=== PATIENT | female | born 1970 | race Caucasian/White ===

== ENCOUNTER → 2016-12-20 | Outpatient (CLI) | payer OTHER ==
--- NOTE | 2016-12-20 13:52 | KCIC ---
Examination: Ultrasound pelvis HISTORY: History of postmenopausal bleeding COMPARISON: None available TECHNIQUE: Transabdominal, transvaginal ultrasonogram of the pelvis. FINDINGS: The uterus measures 9.6 x 4.7 x 6.1 cm. The endometrium in the superior portion appears heterogenous. The evaluation of the endometrium in this region is limited due to shadowing artifact. Grossly the endometrium may measure about 2.3 cm. The right ovary measures 2.8 x 1.6 x 2.3 cm. The left ovary measures 2.2 x 1.4 x 1.6 cm. Blood flow identified in the right and left ovaries. IMPRESSION: 1. Probable thickened appearing endometrium measuring about 2.3 cm.The evaluation of the endometrium is limited due to shadowing artifact. In the postmenopausal woman, differential includes endometrial hyperplasia or malignancy or hormone therapy. As there is artifact limiting evaluation, MRI pelvis may be more useful for further evaluation. Electronically signed by: Eulogio Lim MD (12/20/2016 1:49 PM) [id number]
--- NOTE | 2016-12-20 14:28 | RAD ---
DATE: 12/20/2016 EXAM: MAMMO JARED SCREENING BILATERAL HISTORY: Screening COMPARISON: None. This is a new baseline exam FINDINGS: Breast Density: SCATTERED The breast parenchyma shows scattered fibroglandular densities. Breast parenchyma level B. In addition to routine views implant displacement views were obtained. No mass or suspect calcifications seen in the breast IMPRESSION: Benign findings BI-RADS CATEGORY: 2 BENIGN FINDING(S) RECOMMENDED FOLLOW-UP: 12M 12 MONTH FOLLOW-UP PQRS compliance statement: Patient information was entered into a reminder system with a target due date 12/20/2017 for the next mammogram. Mammography is a sensitive method for finding small breast cancers, but it does not detect them all and is not a substitute for careful clinical examination. A negative mammogram does not negate a clinically suspicious finding and should not result in delay in biopsying a clinically suspicious abnormality. "Our facility is accredited by the [employer] Mammography Program."
== END | disposition home or self-care (01) ==
LOC: KCIC US 12:11
PROVIDERS: ATTEND Obstetrics & Gynecology
DX: Z12.31 Encounter for screening mammogram for malignant neoplasm of breast (principal); N95.0 Postmenopausal bleeding
CPT/HCPCS: 76830; 76856; 77063; G0202; 77067

== ENCOUNTER 2017-02-15 06:34 | Observation (INO) | payer OTHER ==
[~2017-02-15] VITALS: Ht 165.1 cm; Wt 64.0 kg
[2017-02-15] VITALS (9 sets, daily range): BP systolic 102–112; BP diastolic 53–70
[~2017-02-15 06:34] MED LIST: DEXT20CA7 PO
[2017-02-15] MEDS ORDERED: ONDANSETRON PF 4 MG/2 ML VIAL. IV PRN ×2 (07:00→09:45)
[2017-02-15] MEDS ORDERED: IV RINGERS,LACTATED 1000ML 1,000 ML IV SCH (07:00)
[2017-02-15] MEDS ORDERED: fentaNYL PF VIAL 100 MCG/2 ML VIAL IV PRN (07:00)
[2017-02-15] MEDS ORDERED: PROCHLORPERAZINE 10 MG/2 ML VIAL. IV PRN ×2 (07:00→09:45)
[2017-02-15] MEDS ORDERED: LIDOCAINE 1% PF 2 ML VIAL. ID PRN (07:00)
[2017-02-15] MEDS ORDERED: HYDROmorphone 2 MG/ML VIAL IV PRN (07:00)
[2017-02-15] MEDS ORDERED: SCOPOLAMINE 1.5MG PATCH. TD ONE (07:06)
[2017-02-15 07:13] LABS: BASO % 1 % (0-3); EOS % 4 % (0-3); HEMATOCRIT 38.9 % (36.0-47.0); LYMPH # 1.4 x10^3/uL (1.0-4.8); LYMPH % 32 % (24-48); MEAN CORPUSCULAR HEMOGLOBIN 27 pg (25-35); MEAN CORPUSCULAR HGB CONC 33 g/dL (31-37); MEAN CORPUSCULAR VOLUME 82 fL (79-100); MONO % 10 % (0-9); NEUT % 53 % (31-73); PLATELET COUNT 232 x10^3/uL (140-400); RED BLOOD COUNT 4.77 x10^6/uL (3.50-5.40); RED CELL DISTRIBUTION WIDTH 13.5 % (11.5-14.5); WHITE BLOOD COUNT 4.3 x10^3/uL (4.0-11.0)
[2017-02-15] MEDS ORDERED: ROCURONIUM 50 MG/5 ML VIAL. ONE (08:02)
[2017-02-15] MEDS ORDERED: fentaNYL PF VIAL 100 MCG/2 ML VIAL ONE ×2 (08:02→10:07)
[2017-02-15] MEDS ORDERED: PROPOFOL 20 ML IV ONE ×2 (08:02→08:47)
[2017-02-15] MEDS ORDERED: MIDAZOLAM HCL/PF 2 MG/2 ML VIAL. ONE (08:02)
[2017-02-15] MEDS ORDERED: LIDOCAINE 2% PF Vial for OR 5 ML VIAL. ONE (08:02)
[2017-02-15] MEDS ORDERED: LIDOCAINE 1%/EPI 1:100,000 20 ML VIAL. ONE (08:08)
[2017-02-15] MEDS ORDERED: METHYLENE BLUE 1% 10 ML VIAL. ONE (08:08)
[2017-02-15] MEDS ORDERED: ESTROGENS, CONJ VAGINAL CREAM 30GM TUBE. ONE (08:14)
[2017-02-15] MEDS ORDERED: NEOSTIGMINE 10 MG/10 ML VIAL. ONE (08:57)
[2017-02-15] MEDS ORDERED: FAMOTIDINE 20 MG/2 ML VIAL ONE (08:57)
[2017-02-15] MEDS ORDERED: DEXAMETHASONE SOD PHOS 20 MG/5 ML VIAL. ONE (08:57)
[2017-02-15] MEDS ORDERED: ONDANSETRON PF 4 MG/2 ML VIAL. ONE (08:57)
[2017-02-15] MEDS ORDERED: METOCLOPRAMIDE HCL 10 MG/2 ML VIAL. ONE ×3 (08:57→09:19)
[2017-02-15] MEDS ORDERED: GLYCOPYRROLATE 1 MG/5 ML VIAL. ONE (08:57)
[2017-02-15] MEDS ORDERED: KETOROLAC 30 MG/ML INJ FOR OR. INJ ONE (09:18)
[2017-02-15] MEDS ORDERED: SEVOFLURANE 61 TO 120 MINUTES. IH ONE (09:21)
--- NOTE | 2017-02-15 09:32 | PDOC ---
BRIEF OPERATIVE NOTE Date: Feb 15, 2017 Pre-Op Diagnosis 1. Fibroids 2. PMB Post-Op Diagnosis Same Procedure Performed TVH & BSO Surgeon Dr. Matthews Social Security Benefits Interviewer Kathryn Anesthesiologist s Anesthesia Type: General Blood Loss 200 ml IV Fluid a Urine Output a Specimens Obtained uterus, cervix, gabby. fallopian tubes and ovaries Findings enlarged, fibroid uterus; nml fallopian tubes and ovaries gabby. Complications none Operative Note a KRISTIAN MATTHEWS Jr, MD Feb 15, 2017 09:32
[2017-02-15] MEDS ORDERED: diphenhydrAMINE HCL 25 MG CAPSULE PO PRN (09:45)
[2017-02-15] MEDS ORDERED: SIMETHICONE 80 MG TAB.CHEW PO PRN (09:45)
[2017-02-15] MEDS ORDERED: KETOROLAC 30 MG/ML INJ. IV PRN (09:45)
[2017-02-15] MEDS ORDERED: diphenhydrAMINE 50 MG/ML VIAL IV PRN (09:45)
[2017-02-15] MEDS ORDERED: DEXTROSE 50% 25 GM / 50ML DISP.SYRIN. IV PRN (09:45)
[2017-02-15] MEDS ORDERED: 0.9 % SODIUM CHLORIDE 10 ML DISP.SYRIN. IV PRN (09:45)
[2017-02-15] MEDS ORDERED: ZOLPIDEM 5 MG TABLET. PO PRN (09:45)
[2017-02-15] MEDS ORDERED: CALCIUM CARBONATE 500 MG TAB.CHEW PO PRN (09:45)
--- NOTE | 2017-02-15 10:04 | OP ---
DATE OF SURGERY: PREOPERATIVE DIAGNOSES: 1. Fibroids. 2. Postmenopausal bleeding. POSTOPERATIVE DIAGNOSES: 1. Fibroids. 2. Postmenopausal bleeding. PROCEDURE: TVH-BSO. SURGEON: Kristian Matthesw M.D. ANESTHESIA: GETA. ESTIMATED BLOOD LOSS: 200 mL. COMPLICATIONS: None. FINDINGS: Enlarged fibroid uterus, normal fallopian tubes and ovaries bilaterally. SUMMARY: A 46-year-old woman with postmenopausal bleeding and fibroid uterus, required hysterectomy. She was counseled on the risks, benefits and expectations of TVH BSO and voiced a clear understanding to proceed. DESCRIPTION OF PROCEDURE: The patient was taken to surgery suite and placed in dorsal lithotomy position. She was prepped with Betadine solution and draped in sterile fashion. After adequate anesthesia, weighted speculum and curved Danielle were placed vaginally. Eduin clamps were placed on the anterior and posterior lip of the cervix. Cervix was injected with 1% lidocaine with epinephrine in a circumferential manner. Bovie cautery was utilized to circumscribe the cervix. The parametrial tissue was clamped bilaterally with curved Julien clamps, cut and suture ligated with 2-0 Vicryl suture. The posterior cul-de-sac was entered sharply with Metzenbaum scissors. Long weighted speculum was then placed. Uterosacral ligaments and cardinal ligaments were clamped bilaterally, cut and suture ligated. The uterus was then retroverted. The utero-ovarian pedicles were clamped bilaterally, cut and suture ligated. The uterus and cervix were then removed in its entirety. The right infundibulopelvic ligament was isolated and clamped with curved Julien clamps, cut and suture ligated. Same process took place to the left infundibulopelvic ligament. A modified Tony's culdoplasty was then performed, incorporating the uterosacral ligaments bilaterally. The rest of the vaginal cuff was reapproximated using 2-0 Vicryl suture in a [id number]-by-[id number] manner. Premarin-soaked vaginal packing was placed. The patient tolerated the procedure well and was taken to recovery room in stable condition. Sponge and needle count correct x 2. KRISTIAN MATTHEWS MD DR: CALEB/clara JOB#: [id number] / [id number]
[2017-02-15] MEDS: fentaNYL PF VIAL 100 MCG/2 ML VIAL IV PRN ×2 (10:11→10:25)
[2017-02-15] MEDS ORDERED: MORPHINE SULFATE 2 MG/ML DISP.SYRIN. ONE (10:35)
[2017-02-15] MEDS: MORPHINE SULFATE 2 MG/ML DISP.SYRIN. IV PRN ×2 (10:42→10:52)
[2017-02-15] MEDS: oxyCODONE/APAP 5/325 1 TAB TABLET PO PRN ×2 (16:45→21:19)
[2017-02-15] MEDS: GABAPENTIN 300 MG CAPSULE. PO SCH ×2 (16:45→22:00)
[2017-02-16] MEDS: oxyCODONE/APAP 5/325 1 TAB TABLET PO PRN ×2 (01:53→08:53)
[2017-02-16 01:54] VITALS: BP 89/54
[2017-02-16 05:20] VITALS: BP 93/56
[2017-02-16 05:43] LABS: BASO % 0 % (0-3); EOS % 0 % (0-3); HEMATOCRIT 28.7 % (36.0-47.0); HEMOGLOBIN 9.6 g/dL (12.0-15.5); LYMPH # 1.1 x10^3/uL (1.0-4.8); LYMPH % 8 % (24-48); MEAN CORPUSCULAR HEMOGLOBIN 27 pg (25-35); MEAN CORPUSCULAR HGB CONC 34 g/dL (31-37); MEAN CORPUSCULAR VOLUME 81 fL (79-100); MONO % 8 % (0-9); NEUT % 85 % (31-73); PLATELET COUNT 207 x10^3/uL (140-400); RED BLOOD COUNT 3.53 x10^6/uL (3.50-5.40); RED CELL DISTRIBUTION WIDTH 13.4 % (11.5-14.5)
[2017-02-16] MEDS: GABAPENTIN 300 MG CAPSULE. PO SCH (06:27)
--- NOTE | 2017-02-16 08:46 | PDOC ---
SURGICAL PROGRESS NOTE Subjective PT. feeling well. Pain controlled. Pt. tolerating regular diet, ambulating and voiding. Vital Signs Vital Signs Date Time Temp Pulse Resp B/P (MAP) Pulse Ox O2 Delivery O2 Flow Rate FiO2 02/16/17 05:20 97.6 79 18 93/56 (68) 97 Room Air 97.6 02/15/17 10:52 2.0 PATIENT HAS A SANDOVAL: No General: Alert, Oriented X3, Cooperative HEENT: Atraumatic Lungs: Clear to auscultation Heart: Regular rate Abdomen: Normal bowel sounds, Soft, No tenderness Extremities: No clubbing, No edema Psych/Mental Status: Mental status NL Labs Laboratory Tests Test 02/15/17 07:00 02/16/17 05:12 White Blood Count 4.3 x10^3/uL (4.0-11.0) 14.0 x10^3/uL (4.0-11.0) Red Blood Count 4.77 x10^6/uL (3.50-5.40) 3.53 x10^6/uL (3.50-5.40) Hemoglobin 13.0 g/dL (12.0-15.5) 9.6 g/dL (12.0-15.5) Hematocrit 38.9 % (36.0-47.0) 28.7 % (36.0-47.0) Mean Corpuscular Volume 82 fL (79-100) 81 fL (79-100) Mean Corpuscular Hemoglobin 27 pg (25-35) 27 pg (25-35) Mean Corpuscular Hemoglobin Concent 33 g/dL (31-37) 34 g/dL (31-37) Red Cell Distribution Width 13.5 % (11.5-14.5) 13.4 % (11.5-14.5) Platelet Count 232 x10^3/uL (140-400) 207 x10^3/uL (140-400) Neutrophils (%) (Auto) 53 % (31-73) 85 % (31-73) Lymphocytes (%) (Auto) 32 % (24-48) 8 % (24-48) Monocytes (%) (Auto) 10 % (0-9) 8 % (0-9) Eosinophils (%) (Auto) 4 % (0-3) 0 % (0-3) Basophils (%) (Auto) 1 % (0-3) 0 % (0-3) Neutrophils # (Auto) 2.3 x10^3uL (1.8-7.7) 11.9 x10^3uL (1.8-7.7) Lymphocytes # (Auto) 1.4 x10^3/uL (1.0-4.8) 1.1 x10^3/uL (1.0-4.8) Monocytes # (Auto) 0.4 x10^3/uL (0.0-1.1) 1.1 x10^3/uL (0.0-1.1) Eosinophils # (Auto) 0.2 x10^3/uL (0.0-0.7) 0.0 x10^3/uL (0.0-0.7) Basophils # (Auto) 0.0 x10^3/uL (0.0-0.2) 0.0 x10^3/uL (0.0-0.2) Laboratory Tests Test 02/16/17 05:12 White Blood Count 14.0 x10^3/uL (4.0-11.0) Red Blood Count 3.53 x10^6/uL (3.50-5.40) Hemoglobin 9.6 g/dL (12.0-15.5) Hematocrit 28.7 % (36.0-47.0) Mean Corpuscular Volume 81 fL (79-100) Mean Corpuscular Hemoglobin 27 pg (25-35) Mean Corpuscular Hemoglobin Concent 34 g/dL (31-37) Red Cell Distribution Width 13.4 % (11.5-14.5) Platelet Count 207 x10^3/uL (140-400) Neutrophils (%) (Auto) 85 % (31-73) Lymphocytes (%) (Auto) 8 % (24-48) Monocytes (%) (Auto) 8 % (0-9) Eosinophils (%) (Auto) 0 % (0-3) Basophils (%) (Auto) 0 % (0-3) Neutrophils # (Auto) 11.9 x10^3uL (1.8-7.7) Lymphocytes # (Auto) 1.1 x10^3/uL (1.0-4.8) Monocytes # (Auto) 1.1 x10^3/uL (0.0-1.1) Eosinophils # (Auto) 0.0 x10^3/uL (0.0-0.7) Basophils # (Auto) 0.0 x10^3/uL (0.0-0.2) Assessment/Plan A: POD#1 s/p TVH & BSO P: D/c home. Problems: KRISTIAN ACE Jr, MD Feb 16, 2017 08:46
--- NOTE | 2017-02-16 08:47 | DISCH ---
DISCHARGE INSTRUCTIONS Condition on Discharge Condition on Discharge: Stable Activity After Discharge Activity Instructions for Disc: Activity as tolerated Lifting Instructions after Dis: No heavy lifting Driving Instructions after Dis: Do not drive today Diet after Discharge Diet after Discharge: Regular Contacting the DRJessica after DC Call your doctor for: Concerns you may have Follow-Up Follow up with: Dr. Matthews in 2 weeks. KRISTIAN MATTHEWS Jr, MD Feb 16, 2017 08:47
[2017-02-16] MEDS ORDERED: IBUP-1060 PO (08:48)
[2017-02-16] MEDS ORDERED: DOCU-109 PO (08:48)
[2017-02-16] MEDS ORDERED: OXYC-323 PO (08:48)
[2017-02-16 11:50] VITALS: BP 99/59
--- NOTE | 2017-02-16 15:32 | PATHOLOGY ---
PATHOLOGY REPORT * * * * * * * * FINAL DIAGNOSIS: Uterus, cervix, fallopian tubes, and ovaries, "uterus, cervix, bilateral fallopian tubes and bilateral ovaries," hysterectomy and bilateral salpingo-oophorectomy: - Uterine cervix with chronic cervicitis and reactive changes. - Disordered proliferative phase endometrium without any evidence of hyperplasia or malignancy. - Adenomyosis. - Fallopian tube with benign paratubular cyst.. - Ovaries with benign follicular cysts measuring up to 0.8 cm in greatest dimension. (SHA:; 02/16/2017) REPORT ELECTRONICALLY SIGNED BY: Hermann Fatima M.D. DATE/TIME: 02/16/2017 15:31 * * * * * * * * GROSS PATHOLOGY: Received in formalin labeled "Jaylin Lim, uterus, cervix, bilateral fallopian tubes and ovaries" is a hysterectomy specimen with detached fallopian tubes and ovaries. The uterus weighs 128 g and measures 10.5 cm from fundus to cervix, 5.5 cm from cornu to cornu, and 4.5 cm from anterior to posterior. The serosa is pink-hall with a 3.5 x 3.0 cm hemorrhagic area on the posterior surface, which has multiple (possible surgical) serosal defects measuring 0.2 x 0.2 x 0.2 cm to 1.3 x 0.5 x 0.3 cm. The defects cover a 3.0 x 2.5 cm area. The cervical os is ovoid and measures 1.0 x 0.3 cm. The ectocervix is pink-hall and glistening. The cervix is probed patent and the uterus is opened to reveal a 4.0 x 1.0 cm endometrial cavity and a 2.0 x 1.3 cm endocervical canal. The average endometrial thickness measures 0.5 cm and the average myometrial thickness measures 1.7 cm. Upon sectioning, no abnormalities or leiomyomata are identified. One of the detached salpingo-oophorectomy specimens has a blue fabric suture attached. This fallopian tube measures 3.5 cm in length and 0.8 cm in diameter, is fimbriated, and has a pink hall external surface. The attached hall-white cerebriform ovary weighs 3 g and measures 2.8 x 1.8 x 1.2 cm. The ovary is serially sectioned to reveal multiple unremarkable corpora albicantia and a 0.5 x 0.5 x 0.5 cm cystic structure which contains clear watery fluid. The fallopian tube without the suture measures 3.6 cm in length and 1.0 cm in diameter, is fimbriated, and has a pink hall external surface. The fallopian tube has a paratubal cyst measuring 0.9 x 0.6 x 0.4 cm. The attached hall-white cerebriform ovary weighs 4 g and measures 2.7 x 2.1 x 0.7 cm. The ovary is serially sectioned to reveal multiple unremarkable corpora albicantia and a 0.8 x 0.8 x 0.6 cm cystic structure, which contains clear watery fluid. Reference Investigator sections of the specimen are submitted as follows: A1 12:00 cervix A2 6:00 cervix A3 full-thickness anterior endomyometrium A4 full-thickness posterior endomyometrium, also showing serosal defect A5 sales representative [employer] fallopian tube with suture A6 sales representative [employer] ovary with suture A7 sales representative [employer] fallopian tube without suture A8 sales representative [employer] ovary without suture ([facility] [place] 02/15/2017) INITIAL CPT CODE(S): A; 74241 Professional services performed [place] [facility] [address] Technical services performed by [facility] at [address] [place] [address], [address], [place] [address]. SPECIMEN(S) RECEIVED: A.Uterus, cervix, bilateral fallopian tubes, bilateral ovaries CLINICAL HISTORY: Postmenopausal bleeding, fibroids PATIENT: JAYLIN LIM /AGE: 3 1970 (Age: 46) PATIENT #: [id number] ALT CASE #: SPECIMEN COLLECTION DATE: 02/15/2017 SPECIMEN RECEIVED DATE: 02/15/2017 [facility] - [address] [place] [address] - PHONE: [phone] * * * END OF REPORT * * *
== END 2017-02-16 15:24 | disposition home or self-care (01) ==
LOC: SURG 06:34 → 3 NORTH 10:45
PROVIDERS: ADMIT Obstetrics & Gynecology; ATTEND Obstetrics & Gynecology
DX: D25.9 Leiomyoma of uterus, unspecified (principal); N95.0 Postmenopausal bleeding
CPT/HCPCS: 36415; 58262; 85025; 86850; 86900; 86901; 88307; 96374; 96375; G0378; G0379; J0690; J1100; J1170; J1200; J1885; J2250; J2270; J2405; J2704; J2710; J2765; J3010; J3490; J7120; S0028; Q9968; J2001

== ENCOUNTER 2017-03-01 14:04 | Inpatient (IN) | payer OTHER ==
[~2017-03-01] VITALS: Ht 165.1 cm; Wt 63.5 kg
[~2017-03-01 14:04] MED LIST changes: +DOCU-109 PO; +IBUP-1060 PO; +OXYC-323 PO
[2017-03-01 14:34] LABS: GLUCOSE,URINE NEGATIVE (NEG); PROTEIN,URINE NEGATIVE (NEG-TRACE)
[2017-03-01 14:38] LABS: BILIRUBIN,URINE NEGATIVE (NEG); NITRITE,URINE NEGATIVE (NEG)
[2017-03-01 14:41] LABS: BACTERIA,URINE FEW /HPF (0-FEW); RBC,URINE 0 /HPF (0-2); SQUAMOUS EPITHELIAL CELL,UR MOD /LPF
[2017-03-01] MEDS ORDERED: IV NORMAL SALINE 1000ML BAG 1,000 ML IV SCH (14:41)
[2017-03-01] MEDS ORDERED: ONDANSETRON PF 4 MG/2 ML VIAL. IV ONE (14:45)
[2017-03-01 14:51] LABS: BASO % 0 % (0-3); EOS % 2 % (0-3); HEMATOCRIT 32.1 % (36.0-47.0); HEMOGLOBIN 10.7 g/dL (12.0-15.5); LYMPH # 1.1 x10^3/uL (1.0-4.8); LYMPH % 9 % (24-48); MEAN CORPUSCULAR HEMOGLOBIN 27 pg (25-35); MEAN CORPUSCULAR HGB CONC 33 g/dL (31-37); MEAN CORPUSCULAR VOLUME 80 fL (79-100); MONO % 10 % (0-9); NEUT % 79 % (31-73); PLATELET COUNT 345 x10^3/uL (140-400); RED BLOOD COUNT 4.02 x10^6/uL (3.50-5.40); RED CELL DISTRIBUTION WIDTH 12.9 % (11.5-14.5); WHITE BLOOD COUNT 11.7 x10^3/uL (4.0-11.0)
[2017-03-01] MEDS: fentaNYL PF VIAL 100 MCG/2 ML VIAL IV PRN ×4 (14:51→18:14)
[2017-03-01 15:04] LABS: CALCIUM 8.5 mg/dL (8.5-10.1); CREATININE 0.8 mg/dL (0.6-1.0); GFR 76.6; POTASSIUM 3.6 mmol/L (3.5-5.1)
[2017-03-01] MEDS ORDERED: IOHEXOL 300 MG/ML 100ML VIAL. IV ONE (15:15)
[2017-03-01 15:17] LABS: ALBUMIN 2.9 g/dL (3.4-5.0); ALBUMIN/GLOBULIN RATIO 0.6 (1.0-1.7); TOTAL BILIRUBIN 0.5 mg/dL (0.2-1.0); TOTAL PROTEIN 7.6 g/dL (6.4-8.2)
[2017-03-01] MEDS ORDERED: CONTRAST GIVEN MC PRN (15:30)
--- NOTE | 2017-03-01 16:28 | RAD ---
CT ABD PELV W/ IV CONTRST ONLY History:Abdominal pain, dysuria, post hysterectomy 2 weeks ago Technique: After administration of intravenous contrast, CT imaging was performed of the abdomen pelvis, multiplanar reconstruction images submitted. No oral contrast was given as per request. Exposure: One or more of the following individualized dose reduction techniques were utilized for this exam: 1. Automated exposure control.2. Adjustment of the mA and/or KV according to patient size.3. Use of iterative reconstruction technique. Contrast: 75 cc Omnipaque 300 Comparison: None Findings:There has been hysterectomy. There is a fairly large fluid collection in the pelvis with some mild peripheral enhancement, in greatest dimension on the order of 11.3 cm AP x 6.7 cm transverse x 5.5 cm CC. There is a smaller loculation of fluid posteriorly in the right up to 2.4 cm. There is also smaller collection on the right laterally up to 2.9 cm in the adnexal region. These are also size with mild peripheral enhancement. Largest collection is located posterior to the urinary bladder. There is no free air. Bowel is not significantly dilated. There is retained stool greatest of the right and transverse colon. Both kidneys enhance without hydronephrosis. No focal abnormality is identified of the liver, pancreas, spleen, gallbladder, adrenal glands. Impression: 1.There are fluid collections in the pelvis with mild peripheral enhancement which may be due to seromas versus abscesses.
--- NOTE | 2017-03-01 16:49 | ED.ADGEN ---
Past Medical History Past Medical History: Other Additional Past Medical Histor: ADHD Past Surgical History: Hysterectomy, Tubal ligation, Other Additional Past Surgical Histo: abdominoplasty, breast augmention Alcohol Use: Rarely Drug Use: None Adult General Chief Complaint Chief Complaint: ABDOMINAL PAIN HPI HPI Patient is a 46 year old woman, history of TAHBSO on 02/[address] Matthews of [facility], who began taking Bactrim 3 days ago after developing dysuria, and abdominal pain with pain that did radiate into her back, who presents emergency Department with complaint of worsening lower abdominal pain, with development of chills. Patient denies any fevers, any new injuries, any nausea or vomiting, states that her last bowel was 2 days ago, and is unable to pass stool since that time, states that she is more concerned that she will experience pain and therefore "Push". She denies any injuries, states that the pain is sharp and stabbing, and also aching, constant in nature, and is radiating into her back. States that she has been eating and drinking without issue, denies any swelling extremities, any rashes, any focal weakness, numbness, tingling, chest pain, shortness of breath. She states that she spoke to the [facility] office via telephone and relates symptoms of some burning and abdominal discomfort, and therefore started on antibiotics based on these symptoms. She states she has been taking an [id number] anti-bladder spasm medication in conjunction with the Bactrim as directed, states he also using ibuprofen as directed, and Colace, her only baseline medication aside from these is Adderall for ADHD. Review of Systems Review of Systems Constitutional: Denies fever or chills. [] Eyes: Denies change in visual acuity. [] HENT: Denies nasal congestion or sore throat. [] Respiratory: Denies cough or shortness of breath. [] Cardiovascular: Denies chest pain or edema. [] GI: Worsening lower abdominal pain, no nausea, vomiting, bloody stools or diarrhea. Constipation 2 days. : Denies dysuria. [] Musculoskeletal: Denies back pain or joint pain. [] Integument: Denies rash. [] Neurologic: Denies headache, focal weakness or sensory changes. [] Endocrine: Denies polyuria or polydipsia. [] Lymphatic: Denies swollen glands. [] Psychiatric: Denies depression or anxiety. [] Current Medications Current Medications Current Medications Medications (Trade) Dose Ordered Sig/Nafisa Start Time Stop Time Status Last Admin Dose Admin Fentanyl Citrate (Fentanyl 2ml Vial) 25 mcg PRN Q15MIN PRN 03/01/17 14:45 03/02/17 14:44 03/01/17 18:14 25 MCG Info (Do NOT chart on this entry -- for MONITORING) 1 each PRN DAILY PRN 03/01/17 15:30 03/03/17 15:29 Iohexol (Omnipaque 300 Mg/ml) 75 ml 1X ONCE 03/01/17 15:15 03/01/17 15:18 DC 03/01/17 15:21 75 ML Ondansetron HCl (Zofran) 4 mg 1X ONCE 03/01/17 14:45 03/01/17 14:46 DC 03/01/17 14:51 4 MG Sodium Chloride 1,000 ml @ 1,000 mls/hr Q1H 03/01/17 14:41 03/01/17 15:40 DC 03/01/17 14:52 1,000 MLS/HR Allergies Allergies Allergies Coded Allergies Type Severity Reaction Last Updated Verified No Known Drug Allergies 02/15/17 No Physical Exam Physical Exam Constitutional: Well developed, well nourished, no acute distress, non-toxic appearance. [] HENT: Normocephalic, atraumatic, bilateral external ears normal, oropharynx moist, no oral exudates, nose normal. [] Eyes: PERRLA, EOMI, conjunctiva normal, no discharge. [] Neck: Normal range of motion, no tenderness, supple, no stridor. [] Cardiovascular:Heart rate regular rhythm, no murmur, S1, S2, no rubs or gallops. [] Lungs & Thorax: Bilateral breath sounds clear to auscultation, no wheezing, rhonchi, rales. No chest wall crepitus or tenderness. [] Abdomen: Bowel sounds normal, soft, patient with significant tenderness to palpation throughout the abdomen, worse in the lower abdomen, well-healed lower abdominal surgical incision consistent with abdominoplasty, no masses, no pulsatile masses. [] Skin: Warm, dry, no erythema, no rash. [] Back: No tenderness, no CVA tenderness. [] Extremities: No tenderness, no cyanosis, no clubbing, ROM intact, no edema. [] Neurologic: Alert and oriented X 3, normal motor function, normal sensory function, no focal deficits noted. [] Psychologic: Affect normal, judgement normal, mood normal. [] Current Patient Data Vital Signs Vital Signs Date Time Temp Pulse Resp B/P (MAP) Pulse Ox O2 Delivery O2 Flow Rate FiO2 03/01/17 17:38 86 17 102/66 (78) 99 Room Air 03/01/17 14:16 98.4 98.4 Lab Values Laboratory Tests Test 03/01/17 14:20 03/01/17 14:22 Urine Collection Type Clean catch Urine Color [place] Urine Clarity Clear Urine pH 6.0 Urine Specific [place] 1.025 Urine Protein Negative mg/dL (NEG-TRACE) Urine Glucose (UA) Negative mg/dL (NEG) Urine Ketones (Stick) Negative mg/dL (NEG) Urine Blood Negative (NEG) Urine Nitrite Negative (NEG) Urine Bilirubin Negative (NEG) Urine Urobilinogen Dipstick 4.0 mg/dL (0.2 mg/dL) Urine Leukocyte Esterase Trace (NEG) Urine RBC 0 /HPF (0-2) Urine WBC 5-10 /HPF (0-4) Urine Squamous Epithelial Cells Mod /LPF Urine Bacteria Few /HPF (0-FEW) Urine Mucus Mod /LPF White Blood Count 11.7 x10^3/uL (4.0-11.0) H Red Blood Count 4.02 x10^6/uL (3.50-5.40) Hemoglobin 10.7 g/dL (12.0-15.5) L Hematocrit 32.1 % (36.0-47.0) L Mean Corpuscular Volume 80 fL (79-100) Mean Corpuscular Hemoglobin 27 pg (25-35) Mean Corpuscular Hemoglobin Concent 33 g/dL (31-37) Red Cell Distribution Width 12.9 % (11.5-14.5) Platelet Count 345 x10^3/uL (140-400) Neutrophils (%) (Auto) 79 % (31-73) H Lymphocytes (%) (Auto) 9 % (24-48) L Monocytes (%) (Auto) 10 % (0-9) H Eosinophils (%) (Auto) 2 % (0-3) Basophils (%) (Auto) 0 % (0-3) Neutrophils # (Auto) 9.3 x10^3uL (1.8-7.7) H Lymphocytes # (Auto) 1.1 x10^3/uL (1.0-4.8) Monocytes # (Auto) 1.1 x10^3/uL (0.0-1.1) Eosinophils # (Auto) 0.2 x10^3/uL (0.0-0.7) Basophils # (Auto) 0.0 x10^3/uL (0.0-0.2) Sodium Level 136 mmol/L (136-145) Potassium Level 3.6 mmol/L (3.5-5.1) Chloride Level 102 mmol/L (98-107) Carbon Dioxide Level 27 mmol/L (21-32) Anion Gap 7 (6-14) Blood Urea Nitrogen 11 mg/dL (7-20) Creatinine 0.8 mg/dL (0.6-1.0) Estimated GFR (Cockcroft-Gault) 76.6 BUN/Creatinine Ratio 14 (6-20) Glucose Level 96 mg/dL (70-99) Calcium Level 8.5 mg/dL (8.5-10.1) Total Bilirubin 0.5 mg/dL (0.2-1.0) Aspartate Amino Transferase (AST) 19 U/L (15-37) Alanine Aminotransferase (ALT) 19 U/L (14-59) Alkaline Phosphatase 100 U/L (46-116) Total Protein 7.6 g/dL (6.4-8.2) Albumin 2.9 g/dL (3.4-5.0) L Albumin/Globulin Ratio 0.6 (1.0-1.7) L Laboratory Tests 03/01/17 14:22 Laboratory Tests 03/01/17 14:22 EKG EKG ECG: Rhythm strip: Sinus rhythm, heart rate 90 bpm, no ectopy. As interpreted by me.[] Radiology/Procedures Radiology/Procedures [][facility] [address] [place], [place] [id number] IMAGING REPORT Signed PATIENT: PERLA MELVIN ACCOUNT: [id number] : 1970 LOCATION: ER AGE: 46 SEX: F EXAM STATUS: REG ER ORD. PHYSICIAN: KALI LIMON DO REASON: Abd pain/dysuria/ s/p TAHBSO on 02/15 PROCEDURE: CT ABD PELV W/ IV CONTRST ONLY CT ABD PELV W/ IV CONTRST ONLY History:Abdominal pain, dysuria, post hysterectomy 2 weeks ago Technique: After administration of intravenous contrast, CT imaging was performed of the abdomen pelvis, multiplanar reconstruction images submitted. No oral contrast was given as per request. Exposure: One or more of the following individualized dose reduction techniques were utilized for this exam: 1. Automated exposure control.2. Adjustment of the mA and/or KV according to patient size.3. Use of iterative reconstruction technique. Contrast: 75 cc Omnipaque 300 Comparison: None Findings:There has been hysterectomy. There is a fairly large fluid collection in the pelvis with some mild peripheral enhancement, in greatest dimension on the order of 11.3 cm AP x 6.7 cm transverse x 5.5 cm CC. There is a smaller loculation of fluid posteriorly in the right up to 2.4 cm. There is also smaller collection on the right laterally up to 2.9 cm in the adnexal region. These are also size with mild peripheral enhancement. Largest collection is located posterior to the urinary bladder. There is no free air. Bowel is not significantly dilated. There is retained stool greatest of the right and transverse colon. Both kidneys enhance without hydronephrosis. No focal abnormality is identified of the liver, pancreas, spleen, gallbladder, adrenal glands. Impression: 1.There are fluid collections in the pelvis with mild peripheral enhancement which may be due to seromas versus abscesses. DICTATED and SIGNED BY: JANKI NICHOLSON MD DATE: 03/01/17 1618 CC: KALI LIMON DO; NO PCP ~ Course & Med Decision Making Course & Med Decision Making Pertinent Labs and Imaging studies reviewed. (See chart for details) Patient is afebrile upon arrival to the emergency department, has been taking ibuprofen at home. Patient with diffusely tender abdomen, positive for voluntary guarding and rebound. Is agreeable to receiving CT of the abdomen and pelvis to further elucidate symptoms, in light of recent surgical history. Also agreeable to laboratory studies, IV fluids, analgesia and antiemetics in the ED. Patient received 2 doses of IV fentanyl in the ED with improvement of symptoms, along with antiemetics. CT of the abdomen and pelvis reveals several moderately large fluid collections in the abdomen, concern for seroma versus abscess. Mild leukocytosis of 11.7 noted, without evidence of bandemia or shift electrolytes within normal limits. Urinalysis reveals few bacteria, no evidence of nitrates, some white blood cells, however is limited as patient is receiving several days worth of antibiotics. Patient required additional doses of IV analgesia in the ED, states it is only temporizing her pain. I did discuss this with Dr. Matthews, as above were discussed in detail. As patient is afebrile, evidence of systemic infection, patient was offered potential discharged home with plan to follow-up in the outpatient setting for evaluation with IR and potential drainage, versus admission to the hospital for continued management and evaluation in the hospital. Patient states that her pain is persistent at this time, and after requiring a total 4 doses of IV analgesia in the emergency department, she does not believe that oral analgesia will be sufficient. I did discuss this with her surgeon, patient was accepted to his service as a full admission to the [facility] Med[facility] floor, he requested that patient be placed on Flagyl IV twice a day, to continue treatment of symptoms with Motrin, Percocet, and IV analgesia for breakthrough symptoms, will consult interventional radiology for potential drainage tomorrow. I did speak with Dr. Mack of interventional radiology, plan for the patient to be evaluated tomorrow for potential drainage, will be made nothing by mouth after midnight, coags are pending. Patient resting more comfortably and reevaluation of receiving additional IV analgesia as stated, is agreeable with plan as stated, vital signs remained stable in the emergency department awaiting transfer to the floor. Dragon Disclaimer Dragon Disclaimer This electronic medical record was generated, in whole or in part, using a voice recognition dictation system. Departure Impression: Primary Impression: Abdominal fluid collection Additional Impressions: Intractable abdominal pain Urinary tract infection Disposition: ADMITTED INPATIENT Admitting Physician: Other Condition: IMPROVED Problem Qualifiers KALI LIMON DO Mar 01, 2017 16:49
[2017-03-01] MEDS ORDERED: MORPHINE SULFATE 4 MG/ML DISP.SYRIN. IV PRN (18:30)
[2017-03-01 18:35] VITALS: BP 105/70
[2017-03-01 18:41] LABS: INR 1.1 (0.8-1.1); PROTHROMBIN TIME PATIENT 13.8 SEC (11.7-14.0)
[2017-03-01] MEDS ORDERED: oxyCODONE/APAP 5/325 1 TAB TABLET PO PRN (18:45)
[2017-03-01] MEDS: IV NORMAL SALINE 1000ML BAG 1,000 ML IV SCH (18:51)
[2017-03-01] MEDS: ONDANSETRON PF 4 MG/2 ML VIAL. IV PRN (19:32)
[2017-03-01 21:30] VITALS: BP 96/62
[2017-03-01] MEDS: oxyCODONE/APAP 5/325 1 TAB TABLET PO PRN ×2 (21:30→23:35)
[2017-03-01] MEDS: IBUPROFEN 600 MG TABLET. PO PRN (21:30)
[2017-03-02] VITALS (18 sets, daily range): BP systolic 80–116; BP diastolic 50–73
[2017-03-02] MEDS: ONDANSETRON PF 4 MG/2 ML VIAL. IV PRN (01:43)
[2017-03-02] MEDS: IV NORMAL SALINE 1000ML BAG 1,000 ML IV SCH ×2 (02:32→13:14)
[2017-03-02] MEDS: METOCLOPRAMIDE HCL 10 MG/2 ML VIAL. IV PRN ×3 (02:40→22:47)
[2017-03-02] MEDS ORDERED: METOCLOPRAMIDE HCL 10 MG/2 ML VIAL. IV PRN (02:45)
[2017-03-02] MEDS ORDERED: PROMETHAZINE 25 MG SUPP.RECT. PR PRN (02:45)
[2017-03-02 06:28] LABS: BASO % 0 % (0-3); EOS % 1 % (0-3); HEMATOCRIT 25.7 % (36.0-47.0); HEMOGLOBIN 8.6 g/dL (12.0-15.5); LYMPH # 0.7 x10^3/uL (1.0-4.8); LYMPH % 7 % (24-48); MEAN CORPUSCULAR HEMOGLOBIN 27 pg (25-35); MEAN CORPUSCULAR HGB CONC 33 g/dL (31-37); MEAN CORPUSCULAR VOLUME 80 fL (79-100); MONO % 9 % (0-9); NEUT % 83 % (31-73); PLATELET COUNT 248 x10^3/uL (140-400); RED BLOOD COUNT 3.23 x10^6/uL (3.50-5.40); RED CELL DISTRIBUTION WIDTH 13.1 % (11.5-14.5); WHITE BLOOD COUNT 9.9 x10^3/uL (4.0-11.0)
[2017-03-02 06:42] LABS: CREATININE 0.8 mg/dL (0.6-1.0); GFR 76.6; POTASSIUM 3.5 mmol/L (3.5-5.1)
[2017-03-02] MEDS ORDERED: fentaNYL PF VIAL 100 MCG/2 ML VIAL ONE (09:20)
[2017-03-02] MEDS ORDERED: MIDAZOLAM HCL/PF 2 MG/2 ML VIAL. ONE (09:20)
[2017-03-02] MEDS ORDERED: LIDOCAINE 1% / SOD BICARB 8.4% 20 ML VIAL. IJ ONE ×2 (09:34→10:15)
[2017-03-02] MEDS ORDERED: fentaNYL PF VIAL 100 MCG/2 ML VIAL IV ONE (10:15)
[2017-03-02] MEDS ORDERED: MIDAZOLAM HCL/PF 2 MG/2 ML VIAL. IV ONE (10:15)
--- NOTE | 2017-03-02 10:30 | PDOC1 ---
History and Physical Date of Admission Date of Admission DATE: 03/02/17 TIME: 10:06 Identification/Chief Complaint Chief Complaint abd pain and constipation Problems: Source Source: Chart review, Patient History of Present Illness History of Present Illness 46 y/o presented to ED with c/o abd pain. She is 2 wks s/p TVH & BSO. CT scan demonstrated possible seroma formation in pelvis. No fevers, chills, night sweats, hematuria or N/V. She has constipation and was recently treated for UTI. Pt. was seen in clinic just couple days ago for post op visit and felt fine. Pelvic exam in clinic was normal with good healing of vaginal cuff. Past Medical History Cardiovascular: No pertinent hx Pulmonary: No pertinent hx GI: No pertinent hx Heme/Onc: No pertinent hx Hepatobiliary: No pertinent hx Psych: No pertinent hx Past Surgical History Past Surgical History: Hysterectomy, Other (Breast augmentation and tummy tuck) Current Problem List Problem List Problems Medical Problems: (1) Urinary tract infection Status: Acute Problems: Current Medications Current Medications Current Medications Fentanyl Citrate (Fentanyl 2ml Vial) 25 mcg PRN Q15MIN PRN IV PAIN GREATER THAN 3/10 Last administered on 03/01/17 18:14; Start 03/01/17 at 14:45; Stop 03/02/17 at 14:44 Sodium Chloride 1,000 ml @ 1,000 mls/hr Q1H IV Last administered on 14:52; Start 03/01/17 at 14:41; Stop 03/01/17 at 15:40; Status DC Ondansetron HCl (Zofran) 4 mg 1X ONCE IV Last administered on 03/01/17 14:51 ; Start 03/01/17 at 14:45; Stop 03/01/17 at 14:46; Status DC Iohexol (Omnipaque 300 Mg/ml) 75 ml 1X ONCE IV Last administered on 15:21; Start 03/01/17 at 15:15; Stop 03/01/17 at 15:18; Status DC Info (Do NOT chart on this entry -- for MONITORING) 1 each PRN DAILY PRN MC SEE COMMENTS; Start 03/01/17 at 15:30; Stop 03/03/17 at 15:29 Ondansetron HCl (Zofran) 4 mg PRN Q8HRS PRN IV NAUSEA/VOMITING Last administered on 03/02/17 01:43; Start 03/01/17 at 18:30; Stop 03/02/17 at 18 :29 Morphine Sulfate 4 mg PRN Q2HR PRN IV PAIN Last administered on 03/01/17 19: 33; Start 03/01/17 at 18:30; Stop 03/02/17 at 18:29 Sodium Chloride 1,000 ml @ 125 mls/hr Q8H IV Last administered on 03/02/17 02:32; Start 03/01/17 at 19:00; Stop 03/02/17 at 18:59 Metronidazole 100 ml @ 100 mls/hr Q12HR IV Last administered on 03/02/17 09: 17; Start 03/01/17 at 21:00 Oxycodone/ Acetaminophen (Percocet 5/325) 1 tab PRN Q4HRS PRN PO MODERATE PAIN Last administered on 03/01/17 23:35; Start 03/01/17 at 18:30 Ibuprofen (Motrin) 600 mg PRN Q6HRS PRN PO MILD PAIN Last administered on 03/01 21:30; Start 03/01/17 at 18:30 Docusate Sodium (Colace) 100 mg DAILY PO ; Start 03/02/17 at 09:00 Oxycodone/ Acetaminophen (Percocet 5/325) 2 tab PRN Q4HRS PRN PO MODERATE PAIN ; Start 03/01/17 at 18:45 Metoclopramide HCl (Reglan Vial) 10 mg PRN Q6HRS PRN IV NAUSEA/VOMITING; Start 03/02/17 at 02:45; Stop 03/02/17 at 05:01; Status DC Promethazine HCl (Phenergan) 25 mg PRN Q6HRS PRN NV NAUSEA/VOMITING Last administered on 03/02/17 03:12; Start 03/02/17 at 02:45 Metoclopramide HCl (Reglan Vial) 10 mg PRN Q8HRS PRN IV NAUSEA/VOMITING Last administered on 03/02/17 02:40; Start 03/02/17 at 05:00 Active Scripts Active Percocet 5-325 Mg Tablet (Oxycodone/Acetaminophen) 1 Each Tablet 1 Tab PO PRN Q6HRS PRN Ibuprofen 800 Mg Tablet 800 Mg PO PRN Q6HRS PRN Colace (Docusate Sodium) 100 Mg Capsule 100 Mg PO BID Reported Adderall Xr 20 Mg Capsule (Dextroamphetamine/Amphetamine) 20 Mg Cap.er.24h 20 Mg PO DAILY Allergies Allergies: Coded Allergies: No Known Drug Allergies (Unverified , 02/15/17) ROS General: YES: Fatigue, Appetite, No: Chills, Night Sweats, Malaise, Other PSYCHOLOGICAL ROS: No: Anxiety, Behavioral Disorder, Concentration difficultie , Decreased libido, Depression, Disorientation, Hallucinations, Hostility, Irritablity, Memory difficulties, Mood Swings, Obsessive thoughts, Physical abuse, Sexual abuse, Sleep disturbances, Suicidal ideation, Other Eyes: No Blurry vision, No Decreased vision, No Double vision, No Dry eyes, No Excessive tearing, No Eye Pain, No Itchy Eyes, No Loss of vision, No Photophobia , No Scotomata, No Uses contacts, No Uses glasses, No Other HEENT: No: Heacaches, Visual Changes, Hearing change, Nasal congestion, Nasal discharge, Oral lesions, Sinus pain, Sore Throat, Epistaxis, Sneezing, Snoring, Tinnitus, Vertigo, Vocal changes, Other ALLERGY AND IMMUNOLOGY: No: Hives, Insect Bite Sensitivity, Itchy/Watery Eyes, Nasal Congestion, Post Nasal Drip, Seasonal Allergies, Other Hematological and Lymphatic: No: Bleeding Problems, Blood Clots, Blood Transfusions, Brusing, Night Sweats, Pallor, Swollen Lymph Nodes, Other ENDOCRINE: No: Breast Changes, Galactorrhea, Hair Pattern Changes, Hot Flashes , Malaise/lethargy, Mood Swings, Palpitations, Polydipsia/polyuria, Skin Changes , Temperature Intolerance, Unexpected Weight Changes, Other Breast: No New/Changing Breast Lumps, No Nipple changes, No Nipple discharge, No Other Respiratory: No: Cough, Hemoptysis, Orthopnea, Pleuritic Pain, Shortness of breath, SOB with excertion, Sputum Changes, Stridor, Tachypnea, Wheezing, Other Cardiovascular: No Chest Pain, No Palpitations, No Orthopnea, No Paroxysmal Noc. Dyspnea, No Edema, No Lt Headedness, No Other Gastrointestinal: Yes Abdominal Pain, Yes Constipation, No Nausea, No Vomiting, No Diarrhea, No Melena, No Hematochezia, No Other Genitourinary: No Dysuria, No Frequency, No Incontinence, No Hematuria, No Retention, No Discharge, No Urgency, No Pain, No Flank Pain, No Other, No , No , No , No , No , No , No Musculoskeletal: No Gait Disturbance, No Joint Pain, No Joint Stiffness, No Joint Swelling, No Muscle Pain, No Muscular Weakness, No Pain In:, No Swelling In:, No Other Vitals Vitals Vital Signs Date Time Temp Pulse Resp B/P (MAP) Pulse Ox O2 Delivery O2 Flow Rate FiO2 03/02/17 07:30 97.6 70 18 88/63 (71) 96 Room Air 97.6 Labs Labs Laboratory Tests Test 03/01/17 14:02 03/01/17 14:20 03/01/17 14:22 03/02/17 06:10 Prothrombin Time 13.8 SEC (11.7-14.0) Prothromb Time International Ratio 1.1 (0.8-1.1) Activated Partial Thromboplast Time 33 SEC (24-38) Urine Collection Type Clean catch Urine Color [place] Urine Clarity Clear Urine pH 6.0 Urine Specific [place] 1.025 Urine Protein Negative mg/dL (NEG-TRACE) Urine Glucose (UA) Negative mg/dL (NEG) Urine Ketones (Stick) Negative mg/dL (NEG) Urine Blood Negative (NEG) Urine Nitrite Negative (NEG) Urine Bilirubin Negative (NEG) Urine Urobilinogen Dipstick 4.0 mg/dL (0.2 mg/dL) Urine Leukocyte Esterase Trace (NEG) Urine RBC 0 /HPF (0-2) Urine WBC 5-10 /HPF (0-4) Urine Squamous Epithelial Cells Mod /LPF Urine Bacteria Few /HPF (0-FEW) Urine Mucus Mod /LPF White Blood Count 11.7 x10^3/uL (4.0-11.0) 9.9 x10^3/uL (4.0-11.0) Red Blood Count 4.02 x10^6/uL (3.50-5.40) 3.23 x10^6/uL (3.50-5.40) Hemoglobin 10.7 g/dL (12.0-15.5) 8.6 g/dL (12.0-15.5) Hematocrit 32.1 % (36.0-47.0) 25.7 % (36.0-47.0) Mean Corpuscular Volume 80 fL (79-100) 80 fL (79-100) Mean Corpuscular Hemoglobin 27 pg (25-35) 27 pg (25-35) Mean Corpuscular Hemoglobin Concent 33 g/dL (31-37) 33 g/dL (31-37) Red Cell Distribution Width 12.9 % (11.5-14.5) 13.1 % (11.5-14.5) Platelet Count 345 x10^3/uL (140-400) 248 x10^3/uL (140-400) Neutrophils (%) (Auto) 79 % (31-73) 83 % (31-73) Lymphocytes (%) (Auto) 9 % (24-48) 7 % (24-48) Monocytes (%) (Auto) 10 % (0-9) 9 % (0-9) Eosinophils (%) (Auto) 2 % (0-3) 1 % (0-3) Basophils (%) (Auto) 0 % (0-3) 0 % (0-3) Neutrophils # (Auto) 9.3 x10^3uL (1.8-7.7) 8.2 x10^3uL (1.8-7.7) Lymphocytes # (Auto) 1.1 x10^3/uL (1.0-4.8) 0.7 x10^3/uL (1.0-4.8) Monocytes # (Auto) 1.1 x10^3/uL (0.0-1.1) 0.9 x10^3/uL (0.0-1.1) Eosinophils # (Auto) 0.2 x10^3/uL (0.0-0.7) 0.1 x10^3/uL (0.0-0.7) Basophils # (Auto) 0.0 x10^3/uL (0.0-0.2) 0.0 x10^3/uL (0.0-0.2) Sodium Level 136 mmol/L (136-145) 138 mmol/L (136-145) Potassium Level 3.6 mmol/L (3.5-5.1) 3.5 mmol/L (3.5-5.1) Chloride Level 102 mmol/L (98-107) 106 mmol/L (98-107) Carbon Dioxide Level 27 mmol/L (21-32) 25 mmol/L (21-32) Anion Gap 7 (6-14) 7 (6-14) Blood Urea Nitrogen 11 mg/dL (7-20) 9 mg/dL (7-20) Creatinine 0.8 mg/dL (0.6-1.0) 0.8 mg/dL (0.6-1.0) Estimated GFR (Cockcroft-Gault) 76.6 76.6 BUN/Creatinine Ratio 14 (6-20) Glucose Level 96 mg/dL (70-99) 120 mg/dL (70-99) Calcium Level 8.5 mg/dL (8.5-10.1) 8.0 mg/dL (8.5-10.1) Total Bilirubin 0.5 mg/dL (0.2-1.0) Aspartate Amino Transf (AST/SGOT) 19 U/L (15-37) Alanine Aminotransferase (ALT/SGPT) 19 U/L (14-59) Alkaline Phosphatase 100 U/L (46-116) Total Protein 7.6 g/dL (6.4-8.2) Albumin 2.9 g/dL (3.4-5.0) Albumin/Globulin Ratio 0.6 (1.0-1.7) Laboratory Tests Test 03/01/17 14:02 03/01/17 14:20 03/01/17 14:22 03/02/17 06:10 Prothrombin Time 13.8 SEC (11.7-14.0) Prothromb Time International Ratio 1.1 (0.8-1.1) Activated Partial Thromboplast Time 33 SEC (24-38) Urine Collection Type Clean catch Urine Color [place] Urine Clarity Clear Urine pH 6.0 Urine Specific [place] 1.025 Urine Protein Negative mg/dL (NEG-TRACE) Urine Glucose (UA) Negative mg/dL (NEG) Urine Ketones (Stick) Negative mg/dL (NEG) Urine Blood Negative (NEG) Urine Nitrite Negative (NEG) Urine Bilirubin Negative (NEG) Urine Urobilinogen Dipstick 4.0 mg/dL (0.2 mg/dL) Urine Leukocyte Esterase Trace (NEG) Urine RBC 0 /HPF (0-2) Urine WBC 5-10 /HPF (0-4) Urine Squamous Epithelial Cells Mod /LPF Urine Bacteria Few /HPF (0-FEW) Urine Mucus Mod /LPF White Blood Count 11.7 x10^3/uL (4.0-11.0) 9.9 x10^3/uL (4.0-11.0) Red Blood Count 4.02 x10^6/uL (3.50-5.40) 3.23 x10^6/uL (3.50-5.40) Hemoglobin 10.7 g/dL (12.0-15.5) 8.6 g/dL (12.0-15.5) Hematocrit 32.1 % (36.0-47.0) 25.7 % (36.0-47.0) Mean Corpuscular Volume 80 fL (79-100) 80 fL (79-100) Mean Corpuscular Hemoglobin 27 pg (25-35) 27 pg (25-35) Mean Corpuscular Hemoglobin Concent 33 g/dL (31-37) 33 g/dL (31-37) Red Cell Distribution Width 12.9 % (11.5-14.5) 13.1 % (11.5-14.5) Platelet Count 345 x10^3/uL (140-400) 248 x10^3/uL (140-400) Neutrophils (%) (Auto) 79 % (31-73) 83 % (31-73) Lymphocytes (%) (Auto) 9 % (24-48) 7 % (24-48) Monocytes (%) (Auto) 10 % (0-9) 9 % (0-9) Eosinophils (%) (Auto) 2 % (0-3) 1 % (0-3) Basophils (%) (Auto) 0 % (0-3) 0 % (0-3) Neutrophils # (Auto) 9.3 x10^3uL (1.8-7.7) 8.2 x10^3uL (1.8-7.7) Lymphocytes # (Auto) 1.1 x10^3/uL (1.0-4.8) 0.7 x10^3/uL (1.0-4.8) Monocytes # (Auto) 1.1 x10^3/uL (0.0-1.1) 0.9 x10^3/uL (0.0-1.1) Eosinophils # (Auto) 0.2 x10^3/uL (0.0-0.7) 0.1 x10^3/uL (0.0-0.7) Basophils # (Auto) 0.0 x10^3/uL (0.0-0.2) 0.0 x10^3/uL (0.0-0.2) Sodium Level 136 mmol/L (136-145) 138 mmol/L (136-145) Potassium Level 3.6 mmol/L (3.5-5.1) 3.5 mmol/L (3.5-5.1) Chloride Level 102 mmol/L (98-107) 106 mmol/L (98-107) Carbon Dioxide Level 27 mmol/L (21-32) 25 mmol/L (21-32) Anion Gap 7 (6-14) 7 (6-14) Blood Urea Nitrogen 11 mg/dL (7-20) 9 mg/dL (7-20) Creatinine 0.8 mg/dL (0.6-1.0) 0.8 mg/dL (0.6-1.0) Estimated GFR (Cockcroft-Gault) 76.6 76.6 BUN/Creatinine Ratio 14 (6-20) Glucose Level 96 mg/dL (70-99) 120 mg/dL (70-99) Calcium Level 8.5 mg/dL (8.5-10.1) 8.0 mg/dL (8.5-10.1) Total Bilirubin 0.5 mg/dL (0.2-1.0) Aspartate Amino Transf (AST/SGOT) 19 U/L (15-37) Alanine Aminotransferase (ALT/SGPT) 19 U/L (14-59) Alkaline Phosphatase 100 U/L (46-116) Total Protein 7.6 g/dL (6.4-8.2) Albumin 2.9 g/dL (3.4-5.0) Albumin/Globulin Ratio 0.6 (1.0-1.7) VTE Prophylaxis Ordered VTE Prophylaxis Devices: No VTE Pharmacological Prophylaxi: No Assessment/Plan Assessment/Plan A: Pelvic seromas s/p TVH & BSO 2 wks ago Constipation Chronic blood loss anemia P: Admit for care. IR for drain placement. Observe overnight and consider d/c home following day as patient continues to improve. Send fluid for cx. KRISTIAN ACE Jr, MD Mar 02, 2017 10:30
--- NOTE | 2017-03-02 10:59 | PDOC ---
Provider Note Provider Note BRIEF IR NOTE Transgluteal drain placed in to pelvic fluid collection under CT. No complications. Aspirate consistent with aging hematoma. No overt evidence of infection. Sent for gram stain and culture. If collection proves to be sterile, would remove drain as quickly as possible to prevent infection. HIMA MATIAS MD Mar 02, 2017 10:59
[2017-03-02] MEDS ORDERED: BISACODYL 10 MG SUPP.RECT. PR PRN (11:30)
--- NOTE | 2017-03-02 11:57 | RAD ---
CT-guided drainage of pelvic fluid collection, 03/02/2017 Indication: Rim-enhancing pelvic fluid collection. Recent hysterectomy. Possible seroma, abscess, hematoma Discussion: The risks and benefits of the procedure were discussed the patient. Informed consent was obtained. A timeout procedure was performed. The patient was placed in the prone position on the CT scanner. CT imaging was repeated redemonstrating a pelvic fluid collection, similar to comparison CT scans. A right transgluteal approach was selected. 1% lidocaine without epinephrine was administered for local anesthesia. Under intermittent CT guidance a 17-gauge needle was advanced into the collection which was confirmed by CT. A guidewire was advanced into the collection also confirmed by CT. Following dilatation a 10 Greek locking drainage catheter was advanced into the collection. Its position was confirmed with CT. Chronic appearing hematoma was aspirated. No overt evidence of infection was seen. Aspirate was sent for Gram stain and culture. The drain was secured in place and a sterile dressing applied. No immediate complications were identified. The procedures performed under conscious sedation including continuous cardiopulmonary monitoring via dedicated sedation nurse. Sedation time: 30 minutes Impression: CT-guided drainage of pelvic fluid collection from a right transgluteal approach, as described. PQRS Compliance Statement: One or more of the following individualized dose reduction techniques were utilized for this examination: 1. Automated exposure control 2. Adjustment of the mA and/or kV according to patient size 3. Use of iterative reconstruction technique
[2017-03-02] MEDS ORDERED: HYDROcodone/APAP 5/325MG 1 TAB TABLET PO PRN (12:45)
[2017-03-02] MEDS: DOCUSATE SODIUM 100 MG CAPSULE. PO SCH ×2 (13:17→21:26)
[2017-03-02] MEDS: IBUPROFEN 600 MG TABLET. PO PRN (13:17)
[2017-03-02] MEDS: MAGNESIUM HYDROXIDE 2,400 MG/30 ML ORAL.SUSP. PO PRN (13:24)
[2017-03-02] MEDS: FERROUS SULFATE 325 MG TABLET. PO SCH (18:23)
[2017-03-02] MEDS: HYDROcodone/APAP 5/325MG 1 TAB TABLET PO PRN ×2 (18:23→22:47)
[2017-03-03 02:32] VITALS: BP 80/54
[2017-03-03] MEDS: METOCLOPRAMIDE HCL 10 MG/2 ML VIAL. IV PRN (05:44)
[2017-03-03 06:00] VITALS: BP 95/64
[2017-03-03] MEDS: MAGNESIUM HYDROXIDE 2,400 MG/30 ML ORAL.SUSP. PO PRN (06:21)
[2017-03-03 06:41] LABS: BASO % 0 % (0-3); EOS % 1 % (0-3); HEMATOCRIT 26.3 % (36.0-47.0); HEMOGLOBIN 8.7 g/dL (12.0-15.5); LYMPH # 0.6 x10^3/uL (1.0-4.8); LYMPH % 7 % (24-48); MEAN CORPUSCULAR HEMOGLOBIN 26 pg (25-35); MEAN CORPUSCULAR HGB CONC 33 g/dL (31-37); MEAN CORPUSCULAR VOLUME 80 fL (79-100); MONO % 8 % (0-9); NEUT % 84 % (31-73); PLATELET COUNT 243 x10^3/uL (140-400); RED CELL DISTRIBUTION WIDTH 13.2 % (11.5-14.5); WHITE BLOOD COUNT 8.1 x10^3/uL (4.0-11.0)
[2017-03-03 06:46] LABS: CREATININE 0.7 mg/dL (0.6-1.0); GFR 89.3; POTASSIUM 3.6 mmol/L (3.5-5.1)
[2017-03-03 06:53] LABS: ALBUMIN 2.4 g/dL (3.4-5.0); ALBUMIN/GLOBULIN RATIO 0.6 (1.0-1.7); TOTAL PROTEIN 6.1 g/dL (6.4-8.2)
[2017-03-03 06:54] LABS: TOTAL BILIRUBIN 0.6 mg/dL (0.2-1.0)
[2017-03-03] MEDS ORDERED: SODIUM PHOSPHATES 19/7GM 133 ML ENEMA. PR ONE (07:00)
[2017-03-03] MEDS: FERROUS SULFATE 325 MG TABLET. PO SCH (07:54)
[2017-03-03] MEDS: IBUPROFEN 600 MG TABLET. PO PRN (08:09)
[2017-03-03 10:30] VITALS: BP 92/64
--- NOTE | 2017-03-03 14:37 | PDOC ---
SURGICAL PROGRESS NOTE Subjective Pt. feeling better after bowel movement. She is tolerating regular diet, voiding and ambulating in hallways without difficulty. Discussed diet modification to help with constipation. Labs normal. Vital Signs Vital Signs Date Time Temp Pulse Resp B/P (MAP) Pulse Ox O2 Delivery O2 Flow Rate FiO2 03/03/17 10:30 98.0 87 18 92/64 (73) 96 Room Air 98.0 I&O Intake and Output 03/03/17 07:00 Intake Total 4393 ml Output Total 2060 ml Balance 2333 ml Intake Oral 720 ml IV Total 1900 ml Other 1773 ml Output Urine Total 2000 ml Drainage Total 60 ml # Bowel Movements 1 PATIENT HAS A SANDOVAL: No General: Alert, Oriented X3, Cooperative HEENT: Atraumatic Lungs: Clear to auscultation Heart: Regular rate Abdomen: Normal bowel sounds, Soft, No tenderness, No masses, Other (JOANIE Drain less than 15 ml) Extremities: No edema Neuro: Normal gait Psych/Mental Status: Mental status NL Labs Laboratory Tests Test 03/02/17 06:10 03/03/17 06:20 White Blood Count 9.9 x10^3/uL (4.0-11.0) 8.1 x10^3/uL (4.0-11.0) Red Blood Count 3.23 x10^6/uL (3.50-5.40) 3.30 x10^6/uL (3.50-5.40) Hemoglobin 8.6 g/dL (12.0-15.5) 8.7 g/dL (12.0-15.5) Hematocrit 25.7 % (36.0-47.0) 26.3 % (36.0-47.0) Mean Corpuscular Volume 80 fL (79-100) 80 fL (79-100) Mean Corpuscular Hemoglobin 27 pg (25-35) 26 pg (25-35) Mean Corpuscular Hemoglobin Concent 33 g/dL (31-37) 33 g/dL (31-37) Red Cell Distribution Width 13.1 % (11.5-14.5) 13.2 % (11.5-14.5) Platelet Count 248 x10^3/uL (140-400) 243 x10^3/uL (140-400) Neutrophils (%) (Auto) 83 % (31-73) 84 % (31-73) Lymphocytes (%) (Auto) 7 % (24-48) 7 % (24-48) Monocytes (%) (Auto) 9 % (0-9) 8 % (0-9) Eosinophils (%) (Auto) 1 % (0-3) 1 % (0-3) Basophils (%) (Auto) 0 % (0-3) 0 % (0-3) Neutrophils # (Auto) 8.2 x10^3uL (1.8-7.7) 6.8 x10^3uL (1.8-7.7) Lymphocytes # (Auto) 0.7 x10^3/uL (1.0-4.8) 0.6 x10^3/uL (1.0-4.8) Monocytes # (Auto) 0.9 x10^3/uL (0.0-1.1) 0.6 x10^3/uL (0.0-1.1) Eosinophils # (Auto) 0.1 x10^3/uL (0.0-0.7) 0.1 x10^3/uL (0.0-0.7) Basophils # (Auto) 0.0 x10^3/uL (0.0-0.2) 0.0 x10^3/uL (0.0-0.2) Sodium Level 138 mmol/L (136-145) 139 mmol/L (136-145) Potassium Level 3.5 mmol/L (3.5-5.1) 3.6 mmol/L (3.5-5.1) Chloride Level 106 mmol/L (98-107) 106 mmol/L (98-107) Carbon Dioxide Level 25 mmol/L (21-32) 26 mmol/L (21-32) Anion Gap 7 (6-14) 7 (6-14) Blood Urea Nitrogen 9 mg/dL (7-20) 10 mg/dL (7-20) Creatinine 0.8 mg/dL (0.6-1.0) 0.7 mg/dL (0.6-1.0) Estimated GFR (Cockcroft-Gault) 76.6 89.3 Glucose Level 120 mg/dL (70-99) 104 mg/dL (70-99) Calcium Level 8.0 mg/dL (8.5-10.1) 8.0 mg/dL (8.5-10.1) BUN/Creatinine Ratio 14 (6-20) Total Bilirubin 0.6 mg/dL (0.2-1.0) Aspartate Amino Transf (AST/SGOT) 14 U/L (15-37) Alanine Aminotransferase (ALT/SGPT) 9 U/L (14-59) Alkaline Phosphatase 90 U/L (46-116) Total Protein 6.1 g/dL (6.4-8.2) Albumin 2.4 g/dL (3.4-5.0) Albumin/Globulin Ratio 0.6 (1.0-1.7) Laboratory Tests Test 03/03/17 06:20 White Blood Count 8.1 x10^3/uL (4.0-11.0) Red Blood Count 3.30 x10^6/uL (3.50-5.40) Hemoglobin 8.7 g/dL (12.0-15.5) Hematocrit 26.3 % (36.0-47.0) Mean Corpuscular Volume 80 fL (79-100) Mean Corpuscular Hemoglobin 26 pg (25-35) Mean Corpuscular Hemoglobin Concent 33 g/dL (31-37) Red Cell Distribution Width 13.2 % (11.5-14.5) Platelet Count 243 x10^3/uL (140-400) Neutrophils (%) (Auto) 84 % (31-73) Lymphocytes (%) (Auto) 7 % (24-48) Monocytes (%) (Auto) 8 % (0-9) Eosinophils (%) (Auto) 1 % (0-3) Basophils (%) (Auto) 0 % (0-3) Neutrophils # (Auto) 6.8 x10^3uL (1.8-7.7) Lymphocytes # (Auto) 0.6 x10^3/uL (1.0-4.8) Monocytes # (Auto) 0.6 x10^3/uL (0.0-1.1) Eosinophils # (Auto) 0.1 x10^3/uL (0.0-0.7) Basophils # (Auto) 0.0 x10^3/uL (0.0-0.2) Sodium Level 139 mmol/L (136-145) Potassium Level 3.6 mmol/L (3.5-5.1) Chloride Level 106 mmol/L (98-107) Carbon Dioxide Level 26 mmol/L (21-32) Anion Gap 7 (6-14) Blood Urea Nitrogen 10 mg/dL (7-20) Creatinine 0.7 mg/dL (0.6-1.0) Estimated GFR (Cockcroft-Gault) 89.3 BUN/Creatinine Ratio 14 (6-20) Glucose Level 104 mg/dL (70-99) Calcium Level 8.0 mg/dL (8.5-10.1) Total Bilirubin 0.6 mg/dL (0.2-1.0) Aspartate Amino Transf (AST/SGOT) 14 U/L (15-37) Alanine Aminotransferase (ALT/SGPT) 9 U/L (14-59) Alkaline Phosphatase 90 U/L (46-116) Total Protein 6.1 g/dL (6.4-8.2) Albumin 2.4 g/dL (3.4-5.0) Albumin/Globulin Ratio 0.6 (1.0-1.7) Problem List Problems Medical Problems: (1) Urinary tract infection Status: Acute Assessment/Plan Abd Seroma Constipation P: D/c home with Flagyl BID x 2 wks. RTC 1 wk for drain removal. Problems: KRISTIAN ACE Jr, MD Mar 03, 2017 14:37
--- NOTE | 2017-03-03 14:38 | DISCH ---
DISCHARGE INSTRUCTIONS Condition on Discharge Condition on Discharge: Stable Activity After Discharge Activity Instructions for Disc: Activity as tolerated Lifting Instructions after Dis: No heavy lifting Driving Instructions after Dis: Do not drive today Diet after Discharge Diet after Discharge: Regular Contacting the DRJessica after DC Call your doctor for: Concerns you may have Follow-Up Follow up with: Dr. Matthews in 1 week. KRISTIAN MATTHEWS Jr, MD Mar 03, 2017 14:38
[2017-03-03] MEDS ORDERED: METR500T PO (14:39)
[2017-03-03 15:10] VITALS: BP 107/71
== END 2017-03-03 16:30 | disposition home or self-care (01) | DRG 690 ==
LOC: ER 14:04 → 3 SO LND 17:47
PROVIDERS: ADMIT Obstetrics & Gynecology; ATTEND Obstetrics & Gynecology
DX: N39.0 Urinary tract infection, site not specified (principal); D50.0 Iron deficiency anemia secondary to blood loss (chronic); F90.9 Attention-deficit hyperactivity disorder, unspecified type; K59.00 Constipation, unspecified; Z87.440 Personal history of urinary (tract) infections; Z90.710 Acquired absence of both cervix and uterus
CPT/HCPCS: 36415; 49406; 74177; 80048; 80053; 81001; 85025; 85610; 85730; 87071; 87075; 87205; C1729; J0690; J2250; J2270; J2405; J2765; J3010; J3490; J7030; Q9967